=== PATIENT | female | born 1990 | race Two or more races ===

== ENCOUNTER 2019-02-13 05:52 | Day surgery (SDC) | payer OTHER | END 2019-02-13 13:10 | disposition home or self-care (01) | LOC: CIR.AMB 05:52 | DX: O02.1 Missed abortion (principal) ==

== ENCOUNTER 2022-12-21 09:03 | Outpatient (CLI) | payer OTHER ==
[2022-12-21] MEDS ORDERED: PRENAT PO (12:49)
== END 2022-12-21 10:06 | disposition home or self-care (01) ==
LOC: PRENATAL 09:03
PROVIDERS: ATTEND Obstetrics & Gynecology Maternal & Fetal Medicine
DX: O36.80X0 Pregnancy with inconclusive fetal viability, not applicable or unspecified (principal); O09.529 Supervision of elderly multigravida, unspecified trimester; O34.219 Maternal care for unspecified type scar from previous cesarean delivery; Z3A.14 14 weeks gestation of pregnancy

== ENCOUNTER 2022-12-25 10:55 | Day surgery (SDC) | payer OTHER ==
[~2022-12-25 10:55] MED LIST: PRENAT PO
[2022-12-25] MEDS ORDERED: INDOMETHACIN25 MG PO (14:41)
== END 2022-12-25 19:25 | disposition home or self-care (01) ==
LOC: CIR.AMB 10:55
PROVIDERS: ATTEND Obstetrics & Gynecology Maternal & Fetal Medicine
DX: O34.32 Maternal care for cervical incompetence, second trimester (principal); Z3A.15 15 weeks gestation of pregnancy; Z20.822 Contact with and (suspected) exposure to COVID-19

== ENCOUNTER 2023-01-21 12:35 | Outpatient (CLI) | payer OTHER ==
[~2023-01-21 12:35] MED LIST changes: +INDOMETHACIN25 MG PO
== END 2023-01-21 16:50 | disposition home or self-care (01) ==
LOC: PRENATAL 12:35
PROVIDERS: ATTEND Obstetrics & Gynecology Maternal & Fetal Medicine
DX: O35.3XX0 Maternal care for (suspected) damage to fetus from viral disease in mother, not applicable or unspecified (principal); O34.30 Maternal care for cervical incompetence, unspecified trimester; O09.529 Supervision of elderly multigravida, unspecified trimester; O34.219 Maternal care for unspecified type scar from previous cesarean delivery; Z3A.19 19 weeks gestation of pregnancy

== ENCOUNTER 2023-02-25 15:37 | Outpatient (CLI) | payer OTHER | END 2023-02-25 15:38 | disposition home or self-care (01) | LOC: PRENATAL 15:37 | PROVIDERS: ATTEND Obstetrics & Gynecology Maternal & Fetal Medicine | DX: O26.849 Uterine size-date discrepancy, unspecified trimester (principal); O34.30 Maternal care for cervical incompetence, unspecified trimester; O09.529 Supervision of elderly multigravida, unspecified trimester; O34.219 Maternal care for unspecified type scar from previous cesarean delivery; Z3A.24 24 weeks gestation of pregnancy ==

== ENCOUNTER 2023-04-03 15:57 | Outpatient (CLI) | payer OTHER | END 2023-04-03 16:00 | disposition home or self-care (01) | LOC: PRENATAL 15:57 | PROVIDERS: ATTEND Obstetrics & Gynecology Maternal & Fetal Medicine | DX: O26.849 Uterine size-date discrepancy, unspecified trimester (principal); O34.30 Maternal care for cervical incompetence, unspecified trimester; O09.529 Supervision of elderly multigravida, unspecified trimester; O34.219 Maternal care for unspecified type scar from previous cesarean delivery; Z3A.29 29 weeks gestation of pregnancy ==

== ENCOUNTER 2023-06-03 09:26 | Inpatient (IN) | payer OTHER ==
[~2023-06-03] VITALS: Ht 157.5 cm; Wt 90.7 kg
[2023-06-03 11:26] LABS: HEMOGLOBIN 13.6 g/dL (12.0-15.00); MEAN CELL VOLUME 89.9 fL (80.00-100.00); MEAN CORPUSCULAR HEMOGLOBIN 30.7 pg (27.00-32.0); MEAN CORPUSCULAR HGB CONC 34.1 g/dl (32.0-36.0); PLATELET COUNT 144 K/uL (150-450); RED BLOOD COUNT 4.45 M/uL (4.00-6.00); RED CELL DISTRIBUTION WIDTH 13.9 % (11.5-14.5)
[2023-06-03 11:31] LABS: PH,URINE 6.5 (5.0-8.0); URINE APPEARANCE Clear; URINE BILIRRUBIN Negative (NEGATIVE); URINE BLOOD Negative; URINE COLOR Yellow; URINE LEUKOCYTE Small; URINE NITRATE Negative; URINE PROTEIN Negative (NEGATIVE); URINE UROBILINOGEN 0.2 E.U./dl
[2023-06-03 11:36] LABS: URINE BACTERIA 5274.2 uL (0.0-1933); URINE EPITHELIAL CELLS 19.4 uL (0.0-38.8); URINE RBC 16.3 uL (0.0-20.8); URINE WBC 47.1 uL (0.0-23.2)
[2023-06-03 11:55] LABS: INR < 0.93; PARTIAL THROMBOPLASTIN TIME 27.6 SECONDS (22.0-34.0); PROTHROMBIN TIME 9.7 SECONDS (9.0-11.5)
[2023-06-03 12:18] LABS: URINE GLUCOSE 100 MG/DL (NEGATIVE)
[2023-06-06 01:30] LABS: HEMATOCRIT 39.7 % (36.0-45.00); HEMOGLOBIN 13.4 g/dL (12.0-15.00); MEAN CELL VOLUME 90.2 fL (80.00-100.00); MEAN CORPUSCULAR HEMOGLOBIN 30.5 pg (27.00-32.0); MEAN CORPUSCULAR HGB CONC 33.8 g/dl (32.0-36.0); PLATELET COUNT 131 K/uL (150-450); RED CELL DISTRIBUTION WIDTH 13.4 % (11.5-14.5)
[2023-06-08] MEDS ORDERED: IBUPROFEN800 MG PO (08:01)
== END 2023-06-08 11:58 | disposition home or self-care (01) | DRG 783 ==
LOC: OB/GYN 06-05 08:30 → O/R 06-05 12:18 → OB/GYN 06-05 20:09
PROVIDERS: ADMIT Obstetrics & Gynecology; ATTEND Obstetrics & Gynecology
PROC: 0UB70ZZ Excision of Bilateral Fallopian Tubes, Open Approach (ICD-10-PCS; 2023-06-05)
PROC: 4A1HXCZ Monitoring of Products of Conception, Cardiac Rate, External Approach (ICD-10-PCS; 2023-06-05)
PROC: 10D00Z1 Extraction of Products of Conception, Low, Open Approach (ICD-10-PCS; principal; 2023-06-05 08:30)
DX: O34.211 Maternal care for low transverse scar from previous cesarean delivery (principal); O34.33 Maternal care for cervical incompetence, third trimester; Z3A.38 38 weeks gestation of pregnancy; Z37.0 Single live birth; Z20.822 Contact with and (suspected) exposure to COVID-19; Z30.2 Encounter for sterilization